=== PATIENT | female | born 1940 | race Caucasian/White ===

== ENCOUNTER 2023-03-05 00:14 | Inpatient (IN) | payer SELFPAY ==
[~2023-03-05] VITALS: Ht 144.8 cm; Wt 54.4 kg
[2023-03-05] MEDS ORDERED: DEXTROSE 50% WATER 50ML SYRINGE IV ONE ×2 (00:22→00:30)
[2023-03-05] MEDS ORDERED: DEXTROSE 50% WATER 50ML SYRINGE IV PRN ×2 (00:30→09:00)
[2023-03-05 00:40] LABS: BASOPHILS % 0.9 % (0.0-2.0); EOSINOPHILS % 3.7 % (0.0-5.0); HEMATOCRIT. 33.3 % (36.0-48.0); HEMOGLOBIN. 11.4 g/dL (12.0-16.0); LYMPHOCYTES % 33.6 % (20.0-50.0); MEAN CORPUSCULAR HEMOGLOBIN 29.5 pg (28.0-32.0); MEAN CORPUSCULAR VOLUME 86.2 fL (81.0-99.0); MEAN PLATELET VOLUME 8.3 fl (7.4-10.4); MONOCYTES % 7.9 % (2.0-8.0); NEUTROPHILS % 53.9 % (40.0-76.0); PLATELET 299 x1000/uL (130-400); RED BLOOD CELL COUNT 3.86 mill/uL (4.2-5.4); RED CELL DISTRIBUTION WIDTH 13.5 % (11.6-14.6)
[2023-03-05 00:49] LABS: CHLORIDE 104 mEq/L (98-107)
[2023-03-05 01:00] LABS: CREATINE KINASE 421 IU/L (26-192); ETHANOL BLOOD < 10 mg/dL (-10)
[2023-03-05 01:19] LABS: PROTHROMBIN TIME 10.4 sec (9.6-11.0)
[2023-03-05] MEDS ORDERED: DEXT 5%/0.9% NACL 1,000 ML IV ONE (02:30)
[2023-03-05] MEDS: BLOOD SUGAR DIAGNOSTIC STRIP TEST SCH ×4 (09:00→20:22)
[2023-03-05 11:13] LABS: CLARITY URINE CLEAR (CLEAR); COLOR URINE YELLOW (YELLOW); KETONES URINE NEGATIVE (NEGATIVE); LEUKOCYTE ESTERASE URINE NEGATIVE (NEGATIVE); NITRITE URINE NEGATIVE (NEGATIVE); OCCULT BLOOD URINE NEGATIVE (NEGATIVE); PH URINE 6.5 (4.5-8.0); PROTEIN URINE 1+ (NEGATIVE); SPECIFIC GRAVITY URINE 1.007 (1.005-1.030); UROBILINOGEN URINE 0.2 E.U./dL (0.2-1.0)
[2023-03-05 11:47] LABS: *AMPHETAMINES SCREEN URINE NEGATIVE (NEGATIVE); *BARBITURATES SCREEN URINE NEGATIVE (NEGATIVE); *BENZODIAZEPINES SCREEN URINE NEGATIVE (NEGATIVE); *COCAINE SCREEN URINE NEGATIVE (NEGATIVE); CANNABINOID URINE SCREEN NEGATIVE (NEGATIVE); METHADONE URINE SCREEN NEGATIVE (NEGATIVE); OPIATES URINE SCREEN NEGATIVE (NEGATIVE); PHENCYCLIDINE URINE SCREEN NEGATIVE (NEGATIVE)
[2023-03-05] MEDS: DEXT 5%/0.9% NACL 1,000 ML IV SCH ×2 (13:15→20:22)
[2023-03-05] MEDS ORDERED: CLONIDINE 0.1MG TABLET PO PRN (13:15)
[2023-03-05] MEDS ORDERED: ACETAMINOPHEN 325MG TABLET PO PRN (13:15)
[2023-03-05] MEDS ORDERED: ONDANSETRON HCL 4MG/2ML INJ IV PRN (13:15)
[2023-03-05 14:37] LABS: CHLORIDE 110 mEq/L (98-107)
[2023-03-05 14:38] LABS: BASOPHILS % 1.1 % (0.0-2.0); EOSINOPHILS % 5.4 % (0.0-5.0); HEMATOCRIT. 30.9 % (36.0-48.0); HEMOGLOBIN. 10.6 g/dL (12.0-16.0); LYMPHOCYTES % 38.9 % (20.0-50.0); MEAN CORPUSCULAR HEMOGLOBIN 29.6 pg (28.0-32.0); MEAN CORPUSCULAR VOLUME 86.5 fL (81.0-99.0); MEAN PLATELET VOLUME 8.3 fl (7.4-10.4); MONOCYTES % 6.9 % (2.0-8.0); NEUTROPHILS % 47.7 % (40.0-76.0); PLATELET 278 x1000/uL (130-400); RED BLOOD CELL COUNT 3.58 mill/uL (4.2-5.4); RED CELL DISTRIBUTION WIDTH 13.4 % (11.6-14.6)
[2023-03-05 14:48] LABS: CREATINE KINASE 272 IU/L (26-192); CREATINE KINASE MB FRACTION 3.8 ng/mL (0.5-3.6)
[2023-03-05 15:36] VITALS: BP 142/67; PULSE 74; RESP 20; TEMP 97.8
[2023-03-05 16:00] VITALS: BP 143/82; PULSE 89; RESP 20; TEMP 97.6
[2023-03-05] MEDS: INSULIN LISPRO 100 UNITS/ML SUBCUT SCH ×2 (16:44→20:22)
[2023-03-05] MEDS ORDERED: ENOXAPARIN 40MG/0.4ML SYR SUBCUT SCH (18:00)
[2023-03-05 20:00] VITALS: BP 100/77; PULSE 79; RESP 20; TEMP 98.6
[2023-03-06] VITALS: BP 103/66; PULSE 65; RESP 20; TEMP 98.4
[2023-03-06] LABS: CREATINE KINASE MB FRACTION 3.3 ng/mL (0.5-3.6)
[2023-03-06] MEDS ORDERED: VANCOMYCIN 750MG PREMIX 150 ML IV NR
[2023-03-06] MEDS: DEXT 5%/0.9% NACL 1,000 ML IV SCH ×2 (03:44→13:27)
[2023-03-06 04:00] VITALS: BP 107/57; PULSE 65; RESP 20; TEMP 98.2
[2023-03-06 06:04] LABS: BASOPHILS % 1.3 % (0.0-2.0); EOSINOPHILS % 5.3 % (0.0-5.0); HEMATOCRIT. 33.5 % (36.0-48.0); HEMOGLOBIN. 11.5 g/dL (12.0-16.0); LYMPHOCYTES % 46.3 % (20.0-50.0); MEAN CORPUSCULAR HEMOGLOBIN 29.7 pg (28.0-32.0); MEAN CORPUSCULAR VOLUME 86.3 fL (81.0-99.0); MEAN PLATELET VOLUME 8.6 fl (7.4-10.4); MONOCYTES % 7.1 % (2.0-8.0); PLATELET 299 x1000/uL (130-400); RED BLOOD CELL COUNT 3.88 mill/uL (4.2-5.4); RED CELL DISTRIBUTION WIDTH 13.6 % (11.6-14.6)
[2023-03-06] MEDS: BLOOD SUGAR DIAGNOSTIC STRIP TEST SCH ×3 (06:49→16:52)
[2023-03-06] MEDS: INSULIN LISPRO 100 UNITS/ML SUBCUT SCH ×3 (06:49→16:52)
[2023-03-06 08:00] VITALS: BP 155/70; PULSE 63; RESP 18; TEMP 97
[2023-03-06 12:00] VITALS: BP 126/63; PULSE 66; RESP 20; TEMP 97
[2023-03-06] MEDS ORDERED: CIPR250S3 MT (14:57)
[2023-03-06 15:02] VITALS: BP 115/68; PULSE 75; TEMP 97; O2SAT 95
[2023-03-06 16:00] VITALS: BP 122/60; PULSE 68; RESP 18; TEMP 98
[2023-03-06] MEDS ORDERED: ENOXAPARIN 30MG/0.3ML SYR SUBCUT SCH (18:00)
== END 2023-03-06 17:48 | disposition home or self-care (01) | DRG 424 ==
LOC: ER 00:56 → EDBEDREQ 01:31 → MICUSO 03:42 → 8WST 16:12
PROVIDERS: ADMIT Internal Medicine; ATTEND Internal Medicine
DX: E16.2 Hypoglycemia, unspecified (principal); G93.41 Metabolic encephalopathy; N17.9 Acute kidney failure, unspecified; F17.200 Nicotine dependence, unspecified, uncomplicated; I10 Essential (primary) hypertension; E78.5 Hyperlipidemia, unspecified
CPT/HCPCS: 36415; 71045; 80048; 80053; 80305; 80320; 81003; 82550; 82553; 82962; 83036; 83605; 84145; 84484; 85025; 93306; 99291; C1893; J1650; J1815; J3370; J7042; G0480